=== PATIENT | female | born 1965 | race Caucasian/White ===

== ENCOUNTER 2022-05-21 20:07 | Emergency (ER) | payer OTHER ==
[2022-05-21 20:51] LABS: Basophil (Absolute #) 0.06 x10^3/uL (0-0.4); Eosinophil % 0.7 % (0.00-5.0); Eosinophil (Absolute #) 0.09 x10^3/uL (0-0.5); Hematocrit 43.1 % (35-47); Hemoglobin 13.8 g/dL (12.0-16.0); Lymphocyte (Absolute #) 1.87 x10^3/uL (1.0-4.6); Mean Cell Volume 84.7 fL (78-100); Mean Corpuscular Hemoglobin 27.1 pg (26-32); Mean Platelet Volume 10.1 fL (7.5-11.0); Monocyte (Absolute #) 0.66 x10^3/uL (0.0-1.3); Monocytes % 4.9 % (0.0-12.0); Neutrophil % 79.6 % (36.0-66.0); Platelet Count 329 x10^3/uL (150-450); Red Blood Count 5.09 x10^6/uL (4.1-5.4); Red Cell Distribution Width 12.9 % (11.5-14.0); White Blood Count 13.3 x10^3/uL (4.0-10.5)
[2022-05-21 20:56] LABS: Appearance CLEAR (CLEAR); Bilirubin NEGATIVE (NEGATIVE); Dipstick done @ ? MAIN LAB; Glucose NEGATIVE (NEGATIVE); Ketones NEGATIVE (NEGATIVE); Nitrite NEGATIVE (NEGATIVE); Protein,Urine Dip NEGATIVE (Negative); RBC SMALL Ery/ul (0-5); Specific Gravity 1.025 (1.005-1.025); Urobilinogen 0.2 mg/dL (0-1)
--- NOTE | 2022-05-21 20:59 | ERPHSYRPT ---
- History of Present Illness Historian: patient Exam Limitations: no limitations Patient Subjective Stated Complaint: pt states "It started with R lower back hurting yesterday and then it kind of shoots to my R lower belly and I am afraid it is my appendix." Triage Nursing Assessment: Pt ambulatory to bed by self, pt alert and oriented x3, pt hypertensive upon triage, skin pwd, pt c/o R lower back pain that radiates to R lower abd pain since yesterday, pt states "I have been running a fever at home of around 99.9 but I usually run 97.6 so thats a fever for me." Pt took motrin 1 hr prior to arrival, pt c/o of abd tenderness upon palpation in R lower abdomen Physician History: 56 yo wf w R CVA pain and generalized abdominal pain x 1day. CVA pain is described as burning and abdominal pain is cramping. Pain is moderate. Pt has a subjective fever/urinary frequency/nausea wo dysuria/hematuria/melena/hematochezia. Timing/Duration: yesterday Activities at Onset: rest Quality: burning, cramping Abdominal Pain Onset Location: generalized abdomen, other (R CVA) Severity of Pain-Max: moderate Severity of Pain-Current: moderate Modifying Factors: Improves With: nothing Associated Symptoms: back, fever/chills, nausea, No chest pain, No diaphoresis, No diarrhea, No fatigue, No headache, No heartburn, No loss of appetite, No neck pain, No rash, No shortness of breath, No syncope, No vomiting, No weakness Previous symptoms: same symptoms as today (W UTI) Allergies/Adverse Reactions: Sulfa (Sulfonamide Antibiotics) Allergy (Verified 05/21/22 20:20) UNSURE morphine Adverse Reaction (Verified 05/21/22 20:20) Nausea Hx Tetanus, Diphtheria Vaccination/Date Given: Yes Hx Influenza Vaccination/Date Given: No Hx Pneumococcal Vaccination/Date Given: No Immunizations Up to Date: Yes Travel Risk - International Travel Have you traveled outside of the country in past 3 weeks: No - Coronavirus Screening Are you exhibiting any of the following symptoms?: No Close contact with a COVID-19 positive Pt in past 14-21 Days: No - Vaccine Status Have you recieved a Covid-19 vaccination: Yes Staffing Administrator: Fresh ! - Vaccination Dates Date of 2cond Vaccination (if applicable): 2020 - Review of Systems Constitutional: No Symptoms Eyes: No Symptoms Ears, Nose, & Throat: No Symptoms Respiratory: No Symptoms Cardiac: No Symptoms Abdominal/Gastrointestinal: No Symptoms, Abdominal Pain, Nausea Genitourinary Symptoms: No Symptoms, Frequency Musculoskeletal: No Symptoms Skin: No Symptoms Neurological: No Symptoms Psychological: No Symptoms Endocrine: No Symptoms Hematologic/Lymphatic: No Symptoms Immunological/Allergic: No Symptoms - Past Medical History Pertinent Past Medical History: Yes Neurological History: Migraines ENT History: No Pertinent History Cardiac History: No Pertinent History Respiratory History: No Pertinent History Endocrine Medical History: Hypothyroidism Musculoskeletal History: Degenerative Disk Disease, Osteoarthritis GI Medical History: No Pertinent History History: No Pertinent History Psycho-Social History: No Pertinent History Female Reproductive Disorders: No Pertinent History Other Medical History: NOTES SOME N/T INTO R UE, BUT NOTES IT IS GONE VERY QUICKLY. - Past Surgical History Past Surgical History: Yes Neuro Surgical History: No Pertinent History Cardiac: No Pertinent History Respiratory: No Pertinent History Gastrointestinal: No Pertinent History Genitourinary: No Pertinent History Musculoskeletal: No Pertinent History Female Surgical History: Hysterectomy Other Surgical History: TONSILLECTOMY - Social History Smoking Status: Former smoker How long have you smoked: YRS Exposure to second hand smoke: No Drug Use: none Patient Lives Alone: No Significant Family History: no pertinent family hx - Nursing Vital Signs Nursing Vital Signs: Initial Vital Signs Temperature 99.0 F 05/21/22 20:23 Pulse Rate 87 05/21/22 20:23 Respiratory Rate 18 05/21/22 20:23 Blood Pressure 168/99 05/21/22 20:23 O2 Sat by Pulse Oximetry 96 05/21/22 20:23 Pain Scale Pain Intensity 7 Hypertensive - Physical Exam General Appearance: no apparent distress Eye Exam: PERRL/EOMI, eyes nml inspection Ears, Nose, Throat Exam: normal ENT inspection, TMs normal, pharynx normal, moist mucous membranes Neck Exam: normal inspection, non-tender, supple, full range of motion, No meningismus, No mass, No Brudzinski, No Kernig's Respiratory Exam: normal breath sounds, lungs clear, airway intact, No chest tenderness, No respiratory distress Cardiovascular Exam: regular rate/rhythm, normal heart sounds, normal peripheral pulses, capillary refill <2 sec Gastrointestinal/Abdomen Exam: soft, normal bowel sounds, tenderness (Very mild, diffuse wo guarding or rebound) Back Exam: normal inspection, normal range of motion, No CVA tenderness, No vertebral tenderness Extremity Exam: normal inspection, normal range of motion Skin Exam: normal color, warm, dry Lymphatic Exam: No adenopathy SpO2 Interpretation: normal SpO2: 96 O2 Delivery: Room Air - Course Nursing assessment & vital signs reviewed: Yes - CT Exams Abdomen/Pelvis CT Interpretation: Discussed w/radiologist (Mild descending sigmoid diverticulitis/FLETCHER) Ordered Tests: Active Orders 24 hr Category Date Time Status ABDOMEN AND PELVIS W/0 CONTRAS [CT] Stat Exams 05/21/22 21:29 Taken AMYLASE Stat Lab 05/21/22 20:40 Completed CBC W DIFF Stat Lab 05/21/22 20:40 Completed CMP Stat Lab 05/21/22 20:40 Completed LIPASE Stat Lab 05/21/22 20:40 Completed UA W/RFX CULTURE Stat Lab 05/21/22 20:32 Completed Medication Summary Discontinued Medications Generic Name Dose Route Start Last Admin Trade Name Randyq PRN Reason Stop Dose Admin Ciprofloxacin 500 mg 05/22/22 22:37 05/21/22 22:44 Ciprofloxacin 500 Mg Tablet PO 05/22/22 22:38 500 mg STAT ONE Administration Ciprofloxacin Confirm 05/21/22 22:43 Ciprofloxacin 500 Mg Tablet Administered 05/21/22 22:44 Dose 500 mg .ROUTE .STK-MED ONE Metronidazole 500 mg 05/21/22 22:36 05/21/22 22:44 Metronidazole 500 Mg Tablet PO 05/21/22 22:37 500 mg STAT ONE Administration Metronidazole Confirm 05/21/22 22:43 Metronidazole 500 Mg Tablet Administered 05/21/22 22:44 Dose 500 mg .ROUTE .STK-MED ONE Lab/Rad Data: Laboratory Result Diagrams 05/21/22 20:40 05/21/22 20:40 Laboratory Results 05/21/22 05/21/22 05/21/22 Range/Units 20:40 20:40 20:32 WBC 13.3 H (4.0-10.5) x10^3/uL RBC 5.09 (4.1-5.4) x10^6/uL Hgb 13.8 (12.0-16.0) g/dL Hct 43.1 (35-47) % MCV 84.7 (78-100) fL MCH 27.1 (26-32) pg MCHC 32.0 (32-36) g/dL RDW 12.9 (11.5-14.0) % Plt Count 329 (150-450) x10^3/uL MPV 10.1 (7.5-11.0) fL Gran % 79.6 H (36.0-66.0) % Immature Gran % (Auto) 0.4 (0.00-0.4) % Nucleat RBC Rel Count 0.0 (0.00-0.1) % Eos # (Auto) 0.09 (0-0.5) x10^3/uL Immature Gran # (Auto) 0.06 H (0.00-0.03) x10^3u/L Absolute Lymphs (auto) 1.87 (1.0-4.6) x10^3/uL Absolute Monos (auto) 0.66 (0.0-1.3) x10^3/uL Absolute Nucleated RBC 0.00 (0.00-0.01) x10^3u/L Lymphocytes % 14.0 L (24.0-44.0) % Monocytes % 4.9 (0.0-12.0) % Eosinophils % 0.7 (0.00-5.0) % Basophils % 0.4 (0.0-0.4) % Absolute Granulocytes 10.60 H (1.4-6.9) x10^3/uL Basophils # 0.06 (0-0.4) x10^3/uL Sodium 135 L (137-145) mmol/L Potassium 4.1 (3.5-5.1) mmol/L Chloride 103 (98-107) mmol/L Carbon Dioxide 24 (22-30) mmol/L Anion Gap 12.7 (5-15) MEQ/L BUN 15 (7-17) mg/dL Creatinine 0.73 (0.52-1.04) mg/dL Estimated GFR > 60.0 ML/MIN Glucose 105 (74-106) mg/dL Calcium 10.1 (8.4-10.2) mg/dL Total Bilirubin 0.90 (0.2-1.3) mg/dL AST 34 (14-36) U/L ALT 42 H (0-35) U/L Alkaline Phosphatase 116 (38-126) U/L Serum Total Protein 8.7 H (6.3-8.2) g/dL Albumin 4.8 (3.5-5.0) g/dL Amylase 93 (30-110) U/L Lipase 87 (23-300) U/L Urinalys Dipstick Clnc MAIN LAB Urine Color YELLOW (YELLOW) Urine Appearance CLEAR (CLEAR) Urine pH 6.0 (5-6) Ur Specific Waite 1.025 (1.005-1.025) POC Urine Protein Conf NEGATIVE (Negative) Urine Ketones NEGATIVE (NEGATIVE) Urine Nitrite NEGATIVE (NEGATIVE) Urine Bilirubin NEGATIVE (NEGATIVE) Urine Urobilinogen 0.2 (0-1) mg/dL Urine Leukocytes NEGATIVE (NEGATIVE) Urine WBC (Auto) 0-2 (0-5) /HPF Urine RBC (Auto) 0-2 (0-2) /HPF U Epithel Cells (Auto) NONE (FEW) /HPF Urine Bacteria (Auto) NONE (NEGATIVE) /HPF Urine RBC SMALL (0-5) Damir/ul Urine Mucus (Auto) SLIGHT (NEGATIVE) /HPF Ur Culture Indicated? NO Urine Glucose NEGATIVE (NEGATIVE) mg/dL - Progress Progress: improved Progress Note: 05/21/22 22:37 Pt refused pain meds during entire stay Cipro 500mg po x1 Flagyl 500mg po x1 Counseled pt/family regarding: lab results, diagnosis, need for follow-up, rad results - Departure Departure Disposition: Home Clinical Impression: Diverticulitis Condition: Stable Critical Care Time: No Referrals: DYLON BRIDGES [ACTIVE STAFF] - Follow up/PCP as directed Instructions: Diverticulitis (DC), Severe Abdominal Pain, Adult (DC) Additional Instructions: Follow up with your family MD in 2-3 days Continue with Flagyl/Cipro in AM Return to ER for increasing pain or temperature greater than 100.5 Prescriptions: Ciprofloxacin [Cipro 500 MG] 500 mg PO BID #20 tablet Metronidazole 500 mg [Flagyl 500 MG] 500 mg PO TID 10 Days #30 tablet
[2022-05-21 21:02] LABS: Mucus SLIGHT /HPF (NEGATIVE); RBC 0-2 /HPF (0-2); WBC 0-2 /HPF (0-5)
[2022-05-21 21:03] LABS: Urine Cultured Indicated? NO
[2022-05-21 21:11] LABS: ALBUMIN 4.8 g/dL (3.5-5.0); ALKALINE PHOSPHATASE 116 U/L (38-126); AMYLASE 93 U/L (30-110); ANION GAP 12.7 MEQ/L (5-15); BLOOD UREA NITROGEN 15 mg/dL (7-17); CHLORIDE 103 mmol/L (98-107); Calcium 10.1 mg/dL (8.4-10.2); Carbon Dioxide 24 mmol/L (22-30); Creatinine 1 0.73 mg/dL (0.52-1.04); EST GLOMERULAR FILTRATION RATE > 60.0 ML/MIN; Glucose 105 mg/dL (74-106); LIPASE 87 U/L (23-300); Potassium 4.1 mmol/L (3.5-5.1); SGOT/AST 34 U/L (14-36); SGPT/ALT 42 U/L (0-35); SODIUM 135 mmol/L (137-145); Total Protein 8.7 g/dL (6.3-8.2)
[2022-05-21 22:06] VITALS: BP 134/82; PULSE 77
[2022-05-21] MEDS ORDERED: Flagyl 500 MG PO ONE (22:36)
[2022-05-21 22:38] VITALS: O2SAT 96
[2022-05-21] MEDS ORDERED: Flagyl 500 MG ONE (22:43)
[2022-05-21] MEDS ORDERED: Cipro 500 MG ONE (22:43)
--- NOTE | 2022-05-22 09:00 | XRAY ---
Indication: Abdomen pain. Multiple contiguous axial images obtained through the abdomen and pelvis without contrast. Comparison: None Lung bases clear. Heart not enlarged. Partially visualized chunky subcarinal calcified nodes. Noncontrasted stomach and bowel loops appear nonobstructed with normal air-filled appendix. Mild scattered colonic diverticulosis, greatest sigmoid colon. Junction of descending and sigmoid colon demonstrates mild circumferential wall thickening with pericolonic stranding favoring diverticulitis. Tiny reactive fluid along the left colic gutter. No walled off fluid collection or free air. Incidental fatty liver, 1.6 cm left renal cyst, and hysterectomy. Remaining liver, gallbladder, pancreas, spleen, adrenal glands, kidneys, ureters, and bladder are unremarkable for noncontrast exam. Minimal aortic calcifications without AAA. Osseous structures intact with mild/moderate degenerative changes throughout the thoracolumbar spine. No ventral or inguinal hernias. Impression: 1. Diffuse colonic diverticulosis. Mild diverticulitis junction descending and sigmoid colon with tiny free fluid. 2. Chronic findings including fatty liver, left renal cyst, arteriosclerotic disease, chronic bony findings, and old granulomatous disease.
[2022-05-22] MEDS ORDERED: Cipro 500 MG PO ONE (22:37)
== END 2022-05-21 22:51 | disposition home or self-care (01) ==
LOC: ED 20:07
DX: K57.32 Diverticulitis of large intestine without perforation or abscess without bleeding (principal); R10.84 Generalized abdominal pain; R10.9 Unspecified abdominal pain; R50.9 Fever, unspecified; R35.0 Frequency of micturition; R11.0 Nausea
CPT/HCPCS: 36000; 36415; 74176; 80053; 81015; 82150; 83690; 85025; 99284; A9270-GY

== ENCOUNTER 2024-11-25 18:02 | Emergency (ER) | payer OTHER ==
--- NOTE | 2024-11-25 18:38 | ERPHSYRPT ---
- History of Present Illness Time Seen by Provider: 11/25/24 18:33 Source: patient Exam Limitations: no limitations Patient Subjective Stated Complaint: pt had surgery 2 weeks ago to left 3rd finger. she is worried her finger is infected, she states it is more swollen Triage Nursing Assessment: pt alert, walked in. resp easy, skin w/d/p. dressing removed pt has moist white area near surgical site, with some swelling and bruising, has small blister to finger Physician History: Patient is a 59-year-old female presents to our ED for wound check. Patient reports she had surgery to her left middle finger approximately 2 weeks ago. Patient was advised to continue the dressing and not remove it. However patient observed what appears to be a blister at the proximal end of the surgical wound. Patient called her doctor's clinic. There was no return call she became concerned and came to our ED. No other complaints. No fever. No nausea no vomiting no systemic manifestations. The involved digits neurovascular intact distally compartments are soft cap refill less than 2 seconds. Patient otherwise feels well. She voices no other complaints or concerns at this time. Portions of this note were created with voice recognition technology. There may be grammatical, spelling, punctuation or sound alike errors Timing/Duration: today Severity: moderate Modifying Factors: Improves With: nothing Associated Symptoms: denies symptoms Allergies/Adverse Reactions: Sulfa (Sulfonamide Antibiotics) Allergy (Verified 11/25/24 18:16) UNSURE morphine Adverse Reaction (Verified 11/25/24 18:16) Nausea Home Medications: Levothyroxine Sodium 112 Mcg [Synthroid 112 Mcg] 1 ea DAILY 11/25/24 [History] Hx Tetanus, Diphtheria Vaccination/Date Given: Yes Hx Influenza Vaccination/Date Given: No Hx Pneumococcal Vaccination/Date Given: No Immunizations Up to Date: Yes Travel Risk - International Travel Have you traveled outside of the country in past 3 weeks: No - Emerging Infectious Disease Are you exhibiting symptoms associated with any current EIDs: No - Review of Systems Constitutional: No Symptoms, No Fever, No Chills Eyes: No Symptoms Ears, Nose, & Throat: No Symptoms Respiratory: No Symptoms, No Cough, No Dyspnea Cardiac: No Symptoms, No Chest Pain, No Edema, No Syncope Abdominal/Gastrointestinal: No Symptoms, No Abdominal Pain, No Nausea, No Vomiting, No Diarrhea Genitourinary Symptoms: No Symptoms, No Dysuria Musculoskeletal: No Symptoms, No Back Pain, No Neck Pain Skin: No Symptoms, No Rash Neurological: No Symptoms, No Dizziness, No Focal Weakness, No Sensory Changes Psychological: No Symptoms Endocrine: No Symptoms Hematologic/Lymphatic: No Symptoms Immunological/Allergic: No Symptoms All Other Systems: Reviewed and Negative - Past Medical History Pertinent Past Medical History: Yes Neurological History: Migraines ENT History: No Pertinent History Cardiac History: No Pertinent History Respiratory History: No Pertinent History Endocrine Medical History: Hypothyroidism Musculoskeletal History: Arthritis, Degenerative Disk Disease, Osteoarthritis GI Medical History: No Pertinent History History: No Pertinent History Psycho-Social History: No Pertinent History Female Reproductive Disorders: No Pertinent History Other Medical History: NOTES SOME N/T INTO R UE, BUT NOTES IT IS GONE VERY QUICKLY. - Past Surgical History Past Surgical History: Yes Neuro Surgical History: No Pertinent History Cardiac: No Pertinent History Respiratory: No Pertinent History Gastrointestinal: No Pertinent History Genitourinary: No Pertinent History Musculoskeletal: No Pertinent History, Orthopedic Surgery Female Surgical History: Hysterectomy Other Surgical History: TONSILLECTOMY,left hand surg Significant Family History: no pertinent family hx - Social History Smoking Status: Former smoker How long have you smoked: YRS Exposure to second hand smoke: No Drug Use: none Patient Lives Alone: No - Social Determinants of Health Will the patient participate in the screening: Declined to provide - Nursing Vital Signs Nursing Vital Signs: Pain Scale Pain Intensity 0 - Physical Exam General Appearance: no apparent distress, alert Eye Exam: PERRL/EOMI, eyes nml inspection Ears, Nose, Throat Exam: normal ENT inspection Neck Exam: normal inspection, full range of motion Respiratory Exam: normal breath sounds, airway intact, No respiratory distress Cardiovascular Exam: regular rate/rhythm, normal heart sounds, normal peripheral pulses Gastrointestinal/Abdomen Exam: soft, normal bowel sounds, No tenderness, No mass Back Exam: normal inspection, normal range of motion, No CVA tenderness, No vertebral tenderness Extremity Exam: normal inspection, normal range of motion Neurologic Exam: alert, oriented x 3, cooperative, normal mood/affect, sensation nml, No motor deficits Skin Exam: normal color, warm, dry, No rash Lymphatic Exam: No adenopathy SpO2 Interpretation: normal O2 Delivery: Room Air - Course Nursing assessment & vital signs reviewed: Yes - Progress Progress: improved Progress Note: 59-year-old female presents to our ED for a wound check. The involved digit was examined. No signs of infection. Patient currently has a follow-up appointment scheduled with her hand surgeon tomorrow at noon. No lymphangitis. No cellulitis. Negative for Knievel signs. The wound was dressed with a sterile dressing. No indication for antibiotics at this time. Will discharge home. Patient will follow-up tomorrow in her doctor's clinic as scheduled. Portions of this note were created with voice recognition technology. There may be grammatical, spelling, punctuation or sound alike errors Complexity of problem addressed is moderate acute complicated no critical care time. Complex of data reviewed and analyzed is none. No specialized testing ordered. Diagnosis made based on history and physical exam. Risk of complication and or risk of morbidity/mortality of patient management is low. Vital stable. Time spent to discharge patient is approximately 10 minutes. Plan of care established for shared decision making. No social determinants of health present to impede follow-up. Portions of this note were created with voice recognition technology. There may be grammatical, spelling, punctuation or sound alike errors 11/25/24 18:36 11/25/24 18:36 Counseled pt/family regarding: diagnosis, need for follow-up - Departure Departure Disposition: Home Clinical Impression: Visit for wound check Condition: Stable Critical Care Time: No Referrals: HEMANT CAMACHO MD [Primary Care Provider] - Follow up/PCP as directed Additional Instructions: Discharge/Care Plan WALTER FIGUEROA was seen on 11/25/24 in the Emergency Room. The patient was counseled regarding Diagnosis,Lab results, Imaging studies, need for follow up and when to return to the Emergency Room. Prescriptions given: Discharge Note I have spoken with the patient and/or caregivers. I have explained the patient's condition, diagnosis and treatment plan based on the information available to me at this time. I have answered the patient's and/or caregiver's questions and addressed any concerns. The patient and/or caregivers have as good understanding of the patient's diagnosis, condition and treatment plan as can be expected at this point. The vital signs have been stable. The patient's condition is stable and appropriate for discharge from the emergency department. The patient will pursue further outpatient evaluation with the primary care physician or other designated or consulting physician as outlined in the discharge instructions. The patient and/or caregivers are agreeable to this plan of care and follow-up instructions have been explained in detail. The patient and/or caregivers have received these instruction. The patient/and or caregivers are aware that any significant change in condition or worsening of symptoms should prompt an immediate return to this or the closest emergency department or call 911.
[2024-11-25 18:42] VITALS: PULSE 78
[2024-11-25 18:50] VITALS: BP 135/102; RESP 18; O2SAT 96
== END 2024-11-25 18:50 | disposition home or self-care (01) ==
LOC: ED 18:02
DX: Z48.01 Encounter for change or removal of surgical wound dressing (principal); Z79.899 Other long term (current) drug therapy
CPT/HCPCS: 99281; 99282